=== PATIENT | female | born 1990 | race Asian ===

== ENCOUNTER 2017-07-25 04:25 | Emergency (ER) | payer MEDICAID ==
[~2017-07-25] VITALS: Ht 160 cm; Wt 68.2 kg
[2017-07-25 07:35] VITALS: BP 115/66
== END 2017-07-25 08:39 | disposition home or self-care (01) ==
LOC: EMS 04:26
DX: R51 Headache (principal); M54.2 Cervicalgia; V47.5XXA Car driver injured in collision with fixed or stationary object in traffic accident, initial encounter; Y93.89 Activity, other specified; Y92.89 Other specified places as the place of occurrence of the external cause; Y99.8 Other external cause status
CPT/HCPCS: 70450; 99284